=== PATIENT | female | born 1950 | race Two or more races ===

== ENCOUNTER 2016-07-11 07:16 | Day surgery (SDC) | payer MEDICARE, OTHER ==
[2016-07-11] VITALS (11 sets, daily range): BP systolic 115–175; BP diastolic 54–84; PULSE 74–81; RESP 14–19; Ht 144.8 cm; Wt 63.0 kg
[~2016-07-11] VITALS: Ht 144.8 cm; Wt 63.0 kg
[~2016-07-11 07:16] MED LIST: CEFAZOLIN 2 GM/50 ML (PMX) 50 ML IVPB ONE; GLIP5TAB13 PO; LISI-313 PO; METF500T4 PO; SOD CHLORIDE 0.9% 1,000 ML IV SCH
[2016-07-11] MEDS ORDERED: BUPIVACAINE 0.25% (MPF) 10 ML 10 ML VIAL ONE (08:23)
[2016-07-11] MEDS ORDERED: POLYMYXIN/BACITRACIN 1L IRRIG ONE (08:23)
[2016-07-11] MEDS ORDERED: PROPOFOL 20 ML ONE (08:41)
[2016-07-11] MEDS ORDERED: MIDAZOLAM 1 MG/ML 2 ML INJ ONE (08:41)
[2016-07-11] MEDS ORDERED: FENTAnyl 50 MCG/ML VIAL ONE (08:41)
[2016-07-11] MEDS ORDERED: DIPHENHYDRAMINE 50 MG INJ IV PRN (09:00)
[2016-07-11] MEDS ORDERED: MEPERIDINE 25 MG INJ IV PRN (09:00)
[2016-07-11] MEDS ORDERED: ONDANSETRON 4 MG INJ IV PRN (09:00)
[2016-07-11] MEDS ORDERED: HYDROmorphONE (0.2 MG/ML) 10ML SYG IV PRN ×2 (09:00)
[2016-07-11] MEDS ORDERED: EPHEDrine SULFATE 50 MG/5 ML SYG IV PRN (09:00)
[2016-07-11] MEDS ORDERED: morphine (1 MG/ML) 10ML SYRINGE IV PRN ×3 (09:00)
[2016-07-11] MEDS ORDERED: ONDANSETRON 4 MG INJ ONE (09:15)
[2016-07-11] MEDS ORDERED: METOCLOPRAMIDE 10 MG INJ ONE (09:15)
[2016-07-11] MEDS ORDERED: DEXAMETHASONE 4 MG/ML 1 ML INJ ONE (09:15)
[2016-07-11] MEDS ORDERED: CEFAZOLIN 1 GM INJ ONE (09:15)
[2016-07-11] MEDS ORDERED: HYDROCODONE/APAP (5/325) TAB PO ONE (09:30)
[2016-07-11] MEDS: HYDROmorphONE (0.2 MG/ML) 10ML SYG IV PRN ×2 (09:43→09:51)
--- NOTE | 2016-07-11 10:04 | OPR ---
DATE OF OPERATION: 07/11/2016 INDICATION: This is a 66-year-old female with a right inguinal hernia. She requests surgical repai r. Risks, alternatives, benefits, and personnel were discussed with the patient. The patient expre ssed understanding and consents to the operation. POSTOPERATIVE DIAGNOSIS: Right inguinal hernia. OPERATION: Open right inguinal hernia repair with medium size Ultrapro hernia system mesh. SURGEON: Jose Kurtz MD COMPLICATIONS: None. ANESTHESIA: General. DESCRIPTION OF PROCEDURE: The patient is taken to the OR, prepped and draped in the usual sterile f ashion. Surgical timeout was performed. IV antibiotics were given. Right inguinal oblique incisio n was made with a 10 blade. Dissection cautery was carried down to the external oblique fascia whic h was opened with a 15 blade. This incision was carried medially, inferiorly and lateral superiorly with Metzenbaum scissors. Direct hernia was identified in the inguinal floor. This was buttressed with the disk portion of the UltraPro hernia system which was secured in place with a running 0 Pro juanito from the pubic tubercle mesh along the shelving edge of the inguinal ligament and superiorly to the internal oblique with interrupted 3-0 Vicryl. Onlay mesh was also secured in a similar fashion with a running 0 Prolene from the pubic tubercle along the shelving edge of the inguinal ligament a nd superiorly to the internal oblique with interrupted 3-0 Vicryl. External oblique fascia was clos ed with a running 3-0 Vicryl. Chano's was closed with interrupted 3-0 Vicryl. Skin was closed usi ng skin donal. Local anesthesia was injected. Dry dressings were applied. Dictated By: JOSE KURTZ MD SB/NTS Conf#: [id number] DID#: [id number]
== END 2016-07-11 11:10 | disposition home or self-care (01) ==
LOC: SDS 07:16
PROVIDERS: ATTEND Surgery
DX: K40.90 Unilateral inguinal hernia, without obstruction or gangrene, not specified as recurrent (principal); E11.9 Type 2 diabetes mellitus without complications
CPT/HCPCS: 49505; 82962; C1781; J0690; J1100; J1170; J2175; J2250; J2405; J2765; J3010